=== PATIENT | male | born 1990 | race Caucasian/White ===

== ENCOUNTER 2021-03-28 15:15 | Inpatient (IN) | payer MEDICAID ==
[~2021-03-28] VITALS: Ht 177.8 cm; Wt 117.0 kg
[2021-03-28 23:28] VITALS: BP 160/105
[2021-03-29] MEDS ORDERED: loperamide 2mg capsule PO PRN (00:30)
[2021-03-29] MEDS ORDERED: magnesium hydroxide 30ml (MOM) UD suspension PO PRN (00:30)
[2021-03-29] MEDS ORDERED: acetaminophen 325mg tablet PO PRN ×2 (00:30)
[2021-03-29] MEDS ORDERED: mag hydrox/Alum hydrox/simeth 30ml oral suspension PO PRN (00:30)
[2021-03-29] MEDS ORDERED: NO HOME MEDS (00:35)
--- NOTE | 2021-03-29 00:47 | NUR ---
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 Client stated, "I had an argument with my mom over re-arranging the furniture in my room. I left and went driving in my truck and it broke down. It took three hours for the tow truck to come. My mom picked me up and started yelling at me. I threatened to hang myself. I don't feel suicidal right now. I was just upset." THIS SHIFT: Client arrived at 23:05 accompanied by Snow [place]. Client took a shower and changed into green scrubs. His personal belongings were inventoried. Client was cooperative. Affect is blunted. Mood is anxious and depressed. Client took 50 mg Trazodone Tab PO.
[2021-03-29] MEDS: traZODone 50mg tablet PO PRN ×3 (00:54→22:47)
[2021-03-29 07:28] VITALS: BP 133/83
[2021-03-29 08:00] VITALS: BP 133/83
[2021-03-29] MEDS ORDERED: polyvinyl alcohol ophthalmic drops 15ml bottle EACHEYE PRN (09:50)
[2021-03-29] MEDS: PEG 400/HYPROMELLOSE/GLYCERIN 15ml bottle EACHEYE PRN (10:05)
--- NOTE | 2021-03-29 16:58 | NUR ---
Nursing Progress Note: Legal hold: 5150 Client on involuntary status for DTS Report received from nurse with use of SBAR: Phyllis Wu RN Why are they here: Client was transferred from [facility] after threatening to hang himself. Client stated, "I had an argument with my mom over re-arranging the furniture in my room. I left and went driving in my truck and it broke down. It took three hours for the tow truck to come. My mom picked me up and started yelling at me. I threatened to hang myself. I don't feel suicidal right now. I was just upset." Pt. 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 sleeping in bed at the beginning of the shift, he was awoken to attend breakfast in the Group Room. Afterwards, pt. returned back to his room where he isolated throughout the morning, sitting in the dark. Pt. reported dry eyes and this policy writer typist obtained an order for PRN eye drops. 1:1 was completed at bedside, pt. presents as cooperative with a constricted affect and presents as depressed. He also reports restless sleep which has become increasingly common for him. Pt. denies any current S/I, H/I, A/V/REYES, and no delusional statements were made. When this policy writer typist questioned him regarding the incident with his mother that brought him to the hospital, pt. stated, "It doesn't happen very often, but sometimes I just really get upset and I can't walk away because I live with her." He continued on in a circumstantial manner to talk about other arguments he and his mother have had and how he feels that his mother does not listen to him. When this policy writer typist questioned pt. regarding what causes these arguments, pt. stated, "Just when I'm told to do something without a reason. Because I said so seems like a childish answer, and she has a masters degree!" Pt. does admit to a previous suicide attempt he made approximately four years ago in which he attempted to overdose. Pt. reports he currently sees a psychiatrist and a therapist, however states, "They are really poor quality." Pt. presents with an indifferent attitude and perseverates on his desire to discharge. He makes several telephone calls to his mother during the day which appear to go well. S/I, H/I: Denies A/VH: Denies, does not appear internally preoccupied Sleep: Sleep hours are 4, and pt. naps intermittently during the shift ADL's: Independent Group attendance: Yes Were meds taken: None ordered Any med S/E: N/A Mental Status Exam Appearance: Neat and appropriately dressed Eye contact: Good Behavior: Cooperative, guarded, and withdrawn Speech: WNL Mood: Depressed Affect: Constricted Thought process: Circumstantial Thought Content: Perseveration on desire to discharge Cognition: A&O X4 Insight: Poor Judgment: Poor Interventions PRN's used: Eye drops for dry eyes Therapeutic interventions: Introduced self and established rapport, maintained a safe and supportive environment, ensured contract for safety, provided clear and simple instructions, provided active listening and positive encouragement, obtained an order for PRN eye drops, and maintained Q 15min safety checks. Restraints/seclusion/emergency medication: N/A Justification of Continued Inpatient Treatment: Pt. requires interruption of current crisis, medication adjustments, and a safe and supportive environment.
[2021-03-29 19:31] VITALS: BP 146/85
--- NOTE | 2021-03-30 03:12 | NUR ---
Nursing Progress Note: Legal hold: 5150 Client on involuntary status for DTS Report received from MOE Tobin with use of SBAR: Why are they here: Client was transferred from [facility] after threatening to hang himself. Client stated, "I had an argument with my mom over re-arranging the furniture in my room. I left and went driving in my truck and it broke down. It took three hours for the tow truck to come. My mom picked me up and started yelling at me. I threatened to hang myself. I don't feel suicidal right now. I was just upset." Pt. 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 Took a shower per his request. Pt does not interact much with other pts or staff. Does answer questions when asked. Pt did not have any routine PM meds took prn Trazodone x1 then pacing in halls offered repeat dose said he was trying to walk till he got tired. Pt did ask for second dose after about an hour of pacing, and them went to bed and went to sleep. S/I, H/I: Denies A/VH: Denies, does not appear internally preoccupied Sleep: ADL's: Independent Group attendance: Yes Were meds taken: None ordered Any med S/E: N/A Mental Status Exam Appearance: Neat and appropriately dressed Eye contact: Good Behavior: Cooperative, guarded, and withdrawn Speech: WNL Mood: Depressed Affect: Constricted Thought process: Circumstantial Thought Content: Perseveration on desire to discharge Cognition: A&O X4 Insight: Poor Judgment: Poor Interventions PRN's used: Trazodone Therapeutic interventions: Introduced self and established rapport, maintained a safe and supportive environment, ensured contract for safety, provided clear and simple instructions, provided active listening and positive encouragement, and maintained Q 15min safety checks. Restraints/seclusion/emergency medication: N/A Justification of Continued Inpatient Treatment: Pt. requires interruption of current crisis, medication adjustments, and a safe and supportive environment.
[2021-03-30 07:00] VITALS: BP 138/88
[2021-03-30] MEDS: ESCITALOPRAM OXALATE 5 MG TABLET PO SCH (08:52)
[2021-03-30] MEDS: PEG 400/HYPROMELLOSE/GLYCERIN 15ml bottle EACHEYE PRN (08:52)
[2021-03-30 09:07] LABS: ALBUMIN 3.9 G/DL (3.4-5.0); ANION GAP 10 (8-16); BLOOD UREA NITROGEN 12 MG/DL (7-18); BUN/CREATININE RATIO 13.3 (5.4-32.0); CALCIUM 9.2 MG/DL (8.5-10.1); CHLORIDE 103 MMOL/L (99-107); CHOL/HDL RATIO 6.1 (0.00-4.99); CHOLESTEROL 178 MG/DL (0-200); GLUCOSE 85 MG/DL (70-104); HDL CHOLESTEROL 29 MG/DL (35-60); LDL CHOLESTEROL 127 MG/DL (50-100); POTASSIUM 3.2 MMOL/L (3.5-5.1); SODIUM 143 MMOL/L (135-145); TOTAL CARBON DIOXIDE 29.6 MMOL/L (24-32); TRIGLYCERIDES 104 MG/DL (20-135); eGFR > 90 ML/MIN
[2021-03-30 09:15] LABS: HEMOGLOBIN A1C 5.4 % (4.5-6.2)
[2021-03-30] MEDS ORDERED: potassium chloride 10mEq ER tablet PO ONE (12:20)
--- NOTE | 2021-03-30 17:38 | NUR ---
Nursing Progress Note: Legal hold: 5150 Client on involuntary status for DTS Report received from nurse with use of SBAR: Phyllis Wu RN Why are they here: Client was transferred from [facility] after threatening to hang himself. Client stated, "I had an argument with my mom over re-arranging the furniture in my room. I left and went driving in my truck and it broke down. It took three hours for the tow truck to come. My mom picked me up and started yelling at me. I threatened to hang myself. I don't feel suicidal right now. I was just upset." Pt. 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 sleeping in bed at shift change. Patient awakens for breakfast and medications. Patients K+ was 3.2, and patient was given potassium 10 Meq, p.o. Patient reports that he is no longer suicidal and not depressed. Patient reports that Ai Cotton told him that he would be discharging home tomorrow midday. Patient states that his family is coming from [place] to take him home. S/I, H/I: Denies A/VH: Denies Sleep: 6.5 hrs. NOC. ADL's: Independent Group attendance: NA Were meds taken: Yes. Any med S/E: N/A Mental Status Exam Appearance: Clean and neat in casual clothing and beanie. Eye contact: Good Behavior: Cooperative, guarded. Speech: WNL Mood: Depressed Affect: Constricted Thought process: Circumstantial Thought Content: Discharge tomorrow. Cognition: A&O X4 Insight: Poor Judgment: Poor Interventions PRN's used: Eye drops for dry eyes Therapeutic interventions: Introduced self and established rapport, maintained a safe and supportive environment, ensured contract for safety, provided clear and simple instructions, provided active listening and positive encouragement, obtained an order for PRN eye drops, and maintained Q 15min safety checks. Restraints/seclusion/emergency medication: N/A Justification of Continued Inpatient Treatment: Pt. requires interruption of current crisis, medication adjustments, and a safe and supportive environment.
[2021-03-30 19:30] VITALS: BP 142/90
[2021-03-30] MEDS: traZODone 50mg tablet PO PRN (20:31)
--- NOTE | 2021-03-31 02:35 | NUR ---
Nursing Progress Note: Legal hold: 5150 Client on involuntary status for DTS Report received from MOE Tobin with use of SBAR: Why they are here: Client was transferred from [facility] after threatening to hang himself. Client stated, "I had an argument with my mom over re-arranging the furniture in my room. I left and went driving in my truck and it broke down. It took three hours for the tow truck to come. My mom picked me up and started yelling at me. I threatened to hang myself. I don't feel suicidal right now. I was just upset." Pt. 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 Pt visibly happy regarding discharge tomorrow "I'll probably be gone before lunch" Per pt his mom is staying in a local motel and will drive him home to [place] in the [place]. Pt denies any MH symptoms, watched TV, took a PRN Trazodone and went to bed. S/I, H/I: Denies A/VH: Denies, does not appear internally preoccupied Sleep: Asleep at this time ADL's: Independent Group attendance: Yes Were meds taken: None ordered Any med S/E: N/A Mental Status Exam Appearance: Neat and appropriately dressed Eye contact: Good Behavior: Cooperative, Speech: WNL Mood: Happy Affect: Congruent with mood Thought process: Circumstantial Thought Content: Discharge Cognition: A&O X4 Insight: Poor Judgment: Poor Interventions PRN's used: Trazodone Therapeutic interventions: Introduced self and established rapport, maintained a safe and supportive environment, ensured contract for safety, provided clear and simple instructions, provided active listening and positive encouragement, and maintained Q 15min safety checks. Restraints/seclusion/emergency medication: N/A Justification of Continued Inpatient Treatment: Pt. requires interruption of current crisis, medication adjustments, and a safe and supportive environment.
[2021-03-31 07:00] VITALS: BP 164/98
[2021-03-31] MEDS: ESCITALOPRAM OXALATE 5 MG TABLET PO SCH (08:07)
--- NOTE | 2021-03-31 09:52 | NUR ---
DCP Presenting Issues: Pt's 5150 will this afternoon, attending PA requests SS support w/dcp activities as pt is ready to d/c. Interventions: SS met w/pt and engaged him in dcp activities. Per session, pt's already has an intake appointment scheduled w/[facility] on 04/08 and plans to attend it. Pt's mother has been in [place] and will transport pt home upon d/c. Pt will move in w/his mother upon d/c. Clinician had t/c w/[facility] attempted to coordinate dcp but [facility] is closed, [place] [facility] [place]-call service. Plan: Pt to d/c today, and will call his mother to pick him up. Rachel Yang LCSW Addendum: 03/31/21 at 0958 by Rachel Yang SS Amended: Links added.
[2021-03-31] MEDS ORDERED: PEG15DRO6 EACHEYE (11:38)
[2021-03-31] MEDS ORDERED: TRAZ-251 PO (11:38)
[2021-03-31] MEDS ORDERED: ESCI20TA39 PO (11:38)
--- NOTE | 2021-03-31 12:17 | NUR ---
DISCHARGE NOTE: Patient's belongings were inventoried and given to patient. Discharge packet given to patient. Patient will follow-up with [facility]. Patient denies SI. Patient is discharged in stable condition and mother is driving him home.
== END 2021-03-31 12:06 | disposition home or self-care (01) | DRG 751 ==
LOC: ADULT MH 15:15
PROVIDERS: ADMIT Psychiatry & Neurology Psychiatry; ATTEND Psychiatry & Neurology Psychiatry
DX: F33.2 Major depressive disorder, recurrent severe without psychotic features (principal); R45.851 Suicidal ideations; F60.9 Personality disorder, unspecified; F90.9 Attention-deficit hyperactivity disorder, unspecified type; G43.909 Migraine, unspecified, not intractable, without status migrainosus; F12.90 Cannabis use, unspecified, uncomplicated; J45.909 Unspecified asthma, uncomplicated; F41.9 Anxiety disorder, unspecified; Z87.09 Personal history of other diseases of the respiratory system
CPT/HCPCS: 36415; 80048; 80061; 83036; 87081